=== PATIENT | female | born 1945 | race Caucasian/White ===

== ENCOUNTER 2024-08-06 08:36 | Outpatient (CLI) | payer MEDICARE, OTHER, SELFPAY ==
--- OUTSIDE RECORDS SUMMARY | 2024-08-06 08:48 | XMS_ITS | Continuity of Care Document ---
Author Organization [facility] Address [address] [place] [address] Phone Care Team Providers Care Oral And Maxillofacial Surgery Name Role Phone Andre Weiss MD Unavailable Unavailable Procedures Procedure Date INPATIENT CONSULTATION SUBSEQUENT HOSPITAL CARE Advance Directives Directive Yes / No Effective Date File Name No Information Encounters Encounter Description Practice Location Reason(s) For Visit Diagnoses Date Provider Providers Copied on Encounter INPATIENT CONSULTATION [facility], [address], [place], [address], [place] tel:[phone] [facility] No Information Isela Powell. [address], [facility], [place], [place], [id number], [place]. tel:[phone] Referring Provider: Shirin Lane MD, [address] [place], [address]. tel:[phone] Family History Family Member Type Diagnosis Age At Onset No Information Payers Payer name Insurance type Covered green party ID Authoriza tion(s) [facility] [id number] Social History Type Description Quantity Date Captured Comments Sex Female Smoking Status No Information Chief Complaint And Reason For Visit No Information Reason For Referral Reason For Referral No Information History Of Present Illness Encounter Date Complaint History Of Prese nt Illness No Information Functional Status Date Functional Assessmen t No Information Instructions Date Instruction Additional Infor mation No Information Assessments Type Assessment Date No Information Patient Care Teams Name Effective Dates (start - stop) Status Members No Information
--- OUTSIDE RECORDS SUMMARY | 2024-08-06 08:48 | XMS_ITS | Continuity of Care Document ---
Author Organization [facility] Address [address] [place] [address] Phone Care Team Providers Care Supercalender Operator Helper Name Role Phone BASILIO HERNANDEZ MD Unavailable Unavailable Allergies, Adverse Reactions, Alerts Substance Reaction Status Criticality tramadol Active No Information gabapentin rash(severe)rash(severe) Active No Information morphine Vomiting(severe) Active No Informat ion oxycodone itching(severe)itching(severe) Active No Information propoxyphene hives(severe)hives(severe) Active N o Information nitrofurantoin rash then massive hives(severe) Active No Information Sulfa (Sulfonamide Antibiotics) extreme reaction when applied topically to eyelid(severe) Active No Information codeine rash/ throat swelling(severe) Active No Information 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) Active No Information 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) Active No Information Medications Medication Instructions Dosage Effective Dates (start - stop) Status Comments Hiprex 1 gram tablet - Activ e levocetirizine 5 mg tablet - Active trimethoprim 100 mg tablet - Active tetracycline 500 mg capsule - Active omeprazole magnesium 20 mg capsule,delayed release - Active ipratropium bromide 0.03 % nasal spray - Active simvastatin 20 mg tablet take 1 tablet by oral route every day in the evening 20 MG - Active biotin 5,000 mcg sublingual tablet take 1 tablet by oral route once daily - Active albuterol sulfate ER 8 mg tablet,extended release,12 hr take 1 tablet by oral route every 12 hours 8 MG - Active amlodipine 2.5 mg tablet take 1 tablet by oral route every day 2.5 MG - Active Celebrex 200 mg capsule take 1 capsule by oral route 2 times every day 200 MG - Active fluticasone propionate 50 mcg/actuation nasal spray,suspension spray 1 - 2 spray by intranasal route every day in each nostril as needed 50-100 MCG - Active lisinopril 20 mg tablet take 1 tablet by oral route every day 20 MG - Active omeprazole 20 mg tablet,delayed release take 1 tablet by oral route once daily - Active prednisone 20 mg tablet take 1 tablet by oral route every day 20 MG - Active Premarin 0.625 mg/gram vaginal cream insert 0.5 applicatorful by vaginal route every 3 days cyclically, 3 weeks on and 1 week off 1 G - Active Prolia 60 mg/mL subcutaneous syringe inject 1 milliliter by subcutaneous route every 6 months in the upper arm, upper thigh or abdomen 60 MG - Active Qvar RediHaler 80 mcg/actuation HFA breath activated aerosol inhale 2 puff by inhalation route 2 times every day 160 MCG - Active CoQ-10 100 mg capsule take 1 tablet by oral route 2 times every day 1 tablet - Active Procedures Procedure Date CPTR OPHTH DX IMG POST [facility] EYE EXAM & TREATMENT CPTR OPHTH DX IMG POST [facility] EYE EXAM & TREATMENT EYE EXAM & TREATMENT CPTR OPHTH DX IMG POST [facility] EYE EXAM, NEW PATIENT Advance Directives Directive Yes / No Effective Date File Name No Information Encounters Encounter Description Practice Location Reason(s) For Visit Diagnoses Date Provider Providers Copied on Encounter [facility], [address], [place], [place], [id number] , [place] tel:[phone] Basilio Hernandez MD other non-diabetic proliferative retinopathy (chief complaint) Amaurosis fugaxOther non-diabetic proliferative retinopathy of right eyeVitreous degeneration, right eye 2 [facility]. [address], [id number]. tel:[phone] Referring Provider: BASILIO HERNANDEZ [address], [place], [address] . tel:[phone] Basilio Hernandez MD , [address], [place], [place], [address] , [place] tel: [phone] [facility] MD No Information [facility] [address], [place], [place], [address]. tel:[phone] Basilio Hernandez MD , [address], [place], [place], [address] , [place] tel: [phone] Basilio Hernandez MD routine exam (chief complaint) Other non-diabetic proliferative retinopathy, bilateralUnspe cified iridocyclitisV itreous degeneration, right eyeAmaurosis fugax 2 [facility]. [address] [place] [address], [id number]. tel:[phone] Referring Provider: BASILIO HERNANDEZ [address], [address] . tel:[phone] Basilio Hernandez MD , [address], [place], [address] , [place] tel: [phone] Basilio Hernandez MD Iridocyclitis (chief complaint) Other non-diabetic proliferative retinopathy of right eyeUnspecified iridocyclitisV itreous degeneration, right eye 1 [facility] [address], [place], [address]. tel:[phone] Referring Provider: BASILIO HERNANDEZ [address], [place], [address] . tel:[phone] Bas[facility] MD , [address], [place], [place], [address] , [place] tel: [phone] Declan Germain MD No Information Oct-0 7-201 9 No Information [facility] MD , [address], [place], [place], [address] , tel:[phone] Basilio Hernandez MD Retinal Evaluation (chief complaint) Other non-diabetic proliferative retinopathy, bilateralUnspe cified iridocyclitis Oct-0 2-201 9 [facility]. [address], [place], [place], [address]. tel:[phone] Family History Family Member Type Diagnosis Age At Onset Mother Problem (finding) skin cancer Problem (finding) Family history of Parki nson's disease Problem (finding) Family history of hyper tension Mother Problem (finding) osteoporosis Mother Problem (finding) asthma Problem (finding) Family history of alzhe roc's disease Mother Problem (finding) carcinoma Problem (finding) Family history of strok e Problem (finding) Family history of heart attack Payers Payer name Insurance type Covered constitution party ID Authorargeliaa timandy(s) MEDICARE [id number] [facility] CI [id number] Social History Type Description Quantity Date Captured Comments Alcohol Use Details No Caffeine Use Details soda 8 oz per day Tobacco Use Status Ex-cigarette smoker 022 Smoking Status Former smoker Smoking Tobacco Use Details Cigarette: Age Stopped: 20 Cigarette: No Details Available Sex Female Chief Complaint And Reason For Visit From encounter dated '05/07/2022 15:00'. other non-diabetic proliferative retinopathy (chief complaint). Description: The 76 year old femalepresents for evaluation of other non-diabetic proliferative retinopathy in the right eye and left eye. Patient states no visual acuity changes in either eye since her last visit 2 months ago. Patienthad her amourosis fugax work-up and patient states results were normal. Reason For Referral Reason For Referral No Information Plan Of Treatment Date Type Action Status Goal Tobacco cessation counseling completed Goal Tobacco cessation counseling completed History Of Present Illness Encounter Date Complaint History Of Prese nt Illness Nov-08-2022 other non-diabetic p roliferative retinopathy The 76 year old female presents for evaluation of other non-diabetic proliferative retinopathy in the right eye and left eye. Patient states no visual acuity changes in either eye since her last visit 2 months ago. Patient had her amourosis fugax work-up and patient states results were normal. routine exam The 76 year old female presents for a routine exam in both eyes. Patient reports she had a episode where she loss her vision to the right eye for x15 min. and came back blurrier. 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 Patient reports she has not noticed any changes in vision in either eye since her last visit. Retinal Evaluation The 73 year o ld female presents for Retinal Evaluation in both eyes. Patient was treated by Dr. Germain before at retinal centers. 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 Germain. Patient has had laser treatment in the right in 2010 and second time was 2012. Patient complains of having some visual acuity problems in the right eye for several years ago. Patient reports visual acuity not too good in either eye. Patient also reports no pain in either eye. Functional Status Date Functional Assessmen t Pain Score 0/10 Instructions Date Instruction Additional Infor mation Return in 1 year tang Hernandez MD for a follow up exam and OCT (Cube). Related to Other non-diabetic proliferative retinopathy of right eye Impression/Plan Related to Amaur osis fugax Impression/Plan Related to Other non-diabetic proliferative retinopathy of right eye Impression/Plan Related to Vitre ous degeneration, right eye Return in 2 months dodie Hernandez MD for a follow up exam and OCT (Cube). Related to Amaurosis fugax Impression/Plan Related to Other non-diabetic proliferative retinopathy, bilateral Impression/Plan Related to Unspe cified iridocyclitis Impression/Plan Related to Vitre ous degeneration, right eye Impression/Plan Related to Amaur osis fugax Return in 1 year tang Hernandez MD for Follow up exam. Related to Vitreous degeneration, right eye Impression/Plan Related to Unspe cified iridocyclitis Impression/Plan Related to Vitre ous degeneration, right eye Impression/Plan Related to Other non-diabetic proliferative retinopathy of right eye Return in 1 year tang Bueno for Follow up exam. Related to Other non-diabetic proliferative retinopathy, bilateral Impression/Plan Related to Other non-diabetic proliferative retinopathy, bilateral Impression/Plan Related to Unspe cified iridocyclitis Assessments Type Assessment Date assessment Amaurosis fugax impression Amaurosis fugax: G45.3 Right Apr assessment Other non-diabetic proliferative retinopathy of right eye impression Other non-diabetic p roliferative retinopathy of right eye: H35.21 Right assessment Vitreous degeneration, right eye impression Vitreous degeneration, right eye : H43.811 Right Patient Care Teams Name Effective Dates (start - stop) Status Members No Information
[2024-08-06 09:10] LABS: Hematocrit 38.8 % (37.0-47.0); Mean Corpuscular HGB Conc 33.5 g/dl (32-36); Mean Corpuscular Hemoglobin 32.1 pg (26-34); Mean Corpuscular Volume 95.8 fl (80-100); Mean Platelet Volume 9.5 fl (7.4-10.4); Platelet Count Result 375 k/mm3 (150-375); Red Blood Count 4.05 M/mm3 (4.2-5.4); Red Cell Distribution Width 12.2 % (11.5-14.5); White Blood Count 6.9 K/mm3 (4.5-10.0)
[2024-08-06 09:23] LABS: Alanine Aminotransferase 18 U/L (6-35); Albumin Level 4.2 g/dL (3.5-5.1); Alkaline Phosphatase 55 U/L (38-126); Anion Gap 9 mmol/L (4-12); Aspartate Amino Transferase 26 U/L (14-36); Bilirubin,Total 0.9 mg/dL (0.2-1.3); Blood Urea Nitrogen 12 mg/dL (7-17); Calcium 9.3 mg/dL (8.4-10.2); Carbon Dioxide 26 mmol/L (22-30); Chloride 103 mmol/L (98-107); Cholesterol 168 mg/dL (0-200); Estimated Glomerular Filt Rate > 60; Glucose 89 mg/dL (65-110); HDL Direct 68 mg/dL; Potassium 4.2 mmol/L (3.4-5.0); Sodium 138 mmol/L (137-145); Triglycerides 94 mg/dL (<150)
[2024-08-06 09:35] LABS: LDL Cholesterol Direct 78 mg/dL
[2024-08-06 10:17] LABS: Vitamin D 25 Hydroxy 34.5 ng/mL
== END 2024-08-06 08:37 | disposition home or self-care (01) ==
PROVIDERS: PCP Nurse Practitioner Family; Visit Provider Nurse Practitioner Family
DX: E78.5 Hyperlipidemia, unspecified (principal); E55.9 Vitamin D deficiency, unspecified; M81.0 Age-related osteoporosis without current pathological fracture; Z79.899 Other long term (current) drug therapy; Z76.89 Persons encountering health services in other specified circumstances; Z13.228 Encounter for screening for other metabolic disorders; Z13.0 Encounter for screening for diseases of the blood and blood-forming organs and certain disorders involving the immune mechanism
CPT/HCPCS: 36415; 80053; 80061; 82306; 85027

== ENCOUNTER 2025-01-15 13:34 | Emergency (ER) | payer MEDICARE, OTHER, SELFPAY ==
--- OUTSIDE RECORDS SUMMARY | 2025-01-15 13:36 | XMS_ITS | Continuity of Care Document ---
Author Organization [facility] Address [address] [place] [address] Phone Care Team Providers Care Tile Professional Name Role Phone Andre Weiss MD Unavailable Unavailable Procedures Procedure Date INPATIENT CONSULTATION SUBSEQUENT HOSPITAL CARE Advance Directives Directive Yes / No Effective Date File Name No Information Encounters Encounter Description Practice Location Reason(s) For Visit Diagnoses Date Provider Providers Copied on Encounter INPATIENT CONSULTATION [facility], [address], [place], [address], [place] tel:[phone] [facility] No Information Isela Powell. [address], [facility], [place], [place], [address], [place]. tel:[phone] Referring Provider: Shirin Lane MD, [address] [place], [address]. tel:[phone] Family History Family Member Type Diagnosis Age At Onset No Information Payers Payer name Insurance type Covered alliance party ID Authoriza tion(s) [facility] [id number] Social History Type Description Quantity Date Captured [...]
--- OUTSIDE RECORDS SUMMARY | 2025-01-15 13:36 | XMS_ITS | Continuity of Care Document ---
Author Organization [facility] Address [address] [place] [address] Phone Care Team Providers Care Food Order Expediter Name Role Phone BASILIO HERNANDEZ MD Unavailable [...] Procedure Date CPTR OPHTH DX IMG POST [facility] EYE EXAM & TREATMENT CPTR OPHTH DX IMG POST [facility] EYE EXAM & TREATMENT EYE EXAM & TREATMENT CPTR OPHTH DX IMG POST [facility] EYE EXAM, NEW PATIENT Advance Directives Directive Yes / No Effective Date File Name No Information Encounters Encounter Description Practice Location Reason(s) For Visit Diagnoses Date Provider Providers Copied on Encounter [facility], [address], [place], [place], [id number] , [place] tel:[phone] Basilio Hernandez MD other non-diabetic proliferative retinopathy (chief complaint) Amaurosis fugaxOther non-diabetic proliferative retinopathy of right eyeVitreous degeneration, right eye 2 [facility]. [address], [id number]. tel:[phone] Referring Provider: BASILIO HERNANDEZ [address], [place], [address] . tel:[phone] Basilio Hernandez MD , [address], [place], [place], [address] , [place] tel: [phone] Basilio Hernandez MD No Information 2 [facility]. [address], [place], [place], [address]. tel:[phone] Basilio Hernandez MD , [address], [place], [place], [address] , [place] tel: [phone] Basilio Hernandez MD routine exam (chief complaint) Other non-diabetic proliferative retinopathy, bilateralUnspe cified iridocyclitisV itreous degeneration, right eyeAmaurosis fugax 2 [facility]. [address] [place] [address], [id number]. tel:[phone] Referring Provider: BASILIO HERNANDEZ [address], [address] . tel:[phone] Basilio Hernandez MD , [address], [place], [address] , [place] tel: [phone] Basilio Hernandez MD Iridocyclitis (chief complaint) Other non-diabetic proliferative retinopathy of right eyeUnspecified iridocyclitisV itreous degeneration, right eye 1 [facility]. [address], [place], [address]. tel:[phone] Referring Provider: BASILIO HERNANDEZ [address], [place], [address] . tel:[phone] Basilio [facility] MD , [address], [place], [place], [address] , [place] tel: [phone] Declan Germain MD No Information Oct-0 7-201 9 No Information [facility] MD , [address], [place], [place], [address] , tel:[phone] Basilio Hernandez MD Retinal Evaluation (chief complaint) Other non-diabetic proliferative retinopathy, bilateralUnspe cified iridocyclitis Oct-0 2-201 9 [facility]. [address], [place], [place], [address]. tel:[phone] Family History Family Member Type Diagnosis Age [...] Covered constitution party ID Authorargeliaa timandy(s) MEDICARE [id number] [facility] CI [id number] Social History Type Description Quantity Date Captured [...] both eyes. Patient was treated by Dr. Gemrain before at retinal centers. Patient was diagnosed [...]
[2025-01-15 13:39] VITALS: BP 104/79; PULSE 113; RESP 22; TEMP 36.8; O2SAT 99
--- OUTSIDE RECORDS SUMMARY | 2025-01-15 16:49 | XMS_ITS | Continuity of Care Document ---
Author Organization [facility] Address [address] [place] [address] Phone Care Team Providers Care Gut Dropper Name Role Phone Andre Weiss MD Unavailable Unavailable Procedures Procedure Date INPATIENT CONSULTATION SUBSEQUENT HOSPITAL CARE Advance Directives Directive Yes / No Effective Date File Name No Information Encounters Encounter Description Practice Location Reason(s) For Visit Diagnoses Date Provider Providers Copied on Encounter INPATIENT CONSULTATION [facility], [address], [place], [address], [place] tel:[phone] [facility] No Information Isela Powell. [address], [facility], [place], [place], [address], [place]. tel:[phone] Referring Provider: Shirin Lane MD, [address] [place], [address]. tel:[phone] Family History Family Member Type Diagnosis Age At Onset No Information Payers Payer name Insurance type Covered democrat ID Authoriza tion(s) [facility] [id number] Social History Type Description Quantity Date Captured [...]
--- OUTSIDE RECORDS SUMMARY | 2025-01-15 16:49 | XMS_ITS | Continuity of Care Document ---
Author Organization [facility] Address [address] [place] [address] Phone Care Team Providers Care Mold Checker Name Role Phone BASILIO HERNANDEZ MD Unavailable [...] Procedure Date CPTR OPHTH DX IMG POST [facility] EYE EXAM & TREATMENT CPTR OPHTH DX IMG POST [facility] EYE EXAM & TREATMENT EYE EXAM & TREATMENT CPTR OPHTH DX IMG POST [facility] EYE EXAM, NEW PATIENT Advance Directives Directive Yes / No Effective Date File Name No Information Encounters Encounter Description Practice Location Reason(s) For Visit Diagnoses Date Provider Providers Copied on Encounter [facility], [address], [place], [place], [address] , [place] tel:[phone] Basilio Hernandez MD other non-diabetic proliferative retinopathy (chief complaint) Amaurosis fugaxOther non-diabetic proliferative retinopathy of right eyeVitreous degeneration, right eye 2 [facility]. [address], [id number]. tel:[phone] Referring Provider: BASILIO HERNANDEZ [address], [place], [address] . tel:[phone] Basilio Hernandez MD , [address], [place], [place], [address] , [place] tel: [phone] Basilio Hernandez MD No Information 2 [facility] [address], [place], [place], [address]. tel:[phone] Basilio Hernandez MD , [address], [place], [place], [address] , [place] tel: [phone] Basilio Hernandez MD routine exam (chief complaint) Other non-diabetic proliferative retinopathy, bilateralUnspe cified iridocyclitisV itreous degeneration, right eyeAmaurosis fugax 2 [facility]. [address] [place] [address], [id number]. tel:[phone] Referring Provider: BASILIO HERNANDEZ [address], [address] . tel:[phone] Basilio Hernandez MD , [address], [place], [address] , [place] tel: [phone] Basilio Hernandez MD Iridocyclitis (chief complaint) Other non-diabetic proliferative retinopathy of right eyeUnspecified iridocyclitisV itreous degeneration, right eye 1 [facility] [address], [place], [address]. tel:[phone] Referring Provider: BASILIO HERNANDEZ [address], [place], [address] . tel:[phone] Basilio Hernandez MD , [address], [place], [place], [address] , [place] tel: [phone] Declan Germain MD No Information Oct-0 7-201 9 No Information Basilio Hernandez MD , [address], [place], [place], [address] , tel:[phone] Basilio Hernandez MD Retinal Evaluation (chief complaint) Other non-diabetic proliferative retinopathy, bilateralUnspe cified iridocyclitis Oct-0 2-201 9 [facility]. [address], [place], [place], [address]. tel:[phone] Family History Family Member Type Diagnosis Age [...] attack Payers Payer name Insurance type Covered libertarian ID Authorargeliaa timandy(s) MEDICARE [id number] [facility] CI [id number] Social History Type Description Quantity Date Captured [...]
[2025-01-15 16:52] VITALS: BP 143/89; PULSE 98; RESP 20; O2SAT 99
[2025-01-15 17:09] LABS: Add Urine Microscopic? YES; Appearance Urine Cloudy (Clear); Glucose Urine UA Negative (Negative); Leukocyte Esterase Ur 3+ LEU/UL (Negative); Need Manual Microscopic Reviewed; Nitrate Urine Positive (Negative); Specific Grav Ur 1.012 (1.001-1.035)
--- NOTE | 2025-01-15 17:18 | ED.GENADULT ---
HPI - General Adult General Chief complaint: Urogenital-Female Stated complaint: uti Time Seen by Provider: 01/15/25 16:29 History of Present Illness HPI narrative: This is an 79-year-old female presenting with UTI symptoms. Started this morning she developed dysuria urgency and frequency. She does not have any fevers chills nausea vomiting diarrhea. She does not have any flank pain. Patient is very concerned about her health and has an extensive medicine and vitamin list. She also applies pre maroon estrogen cream to her vulva 4 times a week. She has a history of amoxicillin induced hepatitis she is very careful about which antibiotics she will take. Related Data Home Medications ?Medication ?Instructions ?Recorded ?Confirmed ?Last Taken ?Type albuterol sulfate 90 mcg/actuation 2 inh inhalation Q4H PRN 08/04/24 08/04/24 Unknown History aerosol inhaler (Ventolin HFA) azelastine 137 mcg (0.1 %) nasal 1 spray intranasal Q12H 08/04/24 08/04/24 Unknown History spray beclomethasone dipropionate 80 1 inh inhalation Q12H 08/04/24 08/04/24 Unknown History mcg/actuation HFA breath activated aerosol (Qvar RediHaler) calcium 600 mg (as carbonate)-vit 2 tablet PO 08/04/24 08/04/24 Unknown History D3 10 mcg (400 unit) chewable tablet (Calcium 600 with Vitamin D3) celecoxib 200 mg capsule (Celebrex) 200 mg PO DAILY 08/04/24 08/04/24 Unknown History conjugated estrogens 0.625 mg/gram 0.625 mg vaginal 4XW 08/04/24 08/04/24 Unknown History vaginal cream (Premarin) fluticasone propionate 50 1 spray intranasal BID 08/04/24 08/04/24 Unknown History mcg/actuation nasal spray,suspension ipratropium bromide 21 mcg (0.03 2 spray intranasal ONCE PRN 08/04/24 08/04/24 Unknown History %) nasal spray multivitamin 1 tablet PO DAILY 08/04/24 08/04/24 Unknown History simvastatin 20 mg tablet 20 mg PO QHS 08/04/24 08/04/24 Unknown History amlodipine 2.5 mg tablet (Norvasc) 2.5 mg PO DAILY 08/05/24 08/05/24 Unknown History Allergies Allergy/AdvReac Type Severity Reaction Status Date / Time amoxicillin (From Augmentin) AdvReac Severe Other Verified 01/15/25 16:56 clavulanic acid (From AdvReac Severe Other Verified 01/15/25 16:56 Augmentin) codeine AdvReac Severe Rash Verified 01/15/25 16:56 gabapentin AdvReac Severe Rash Verified 01/15/25 16:56 nitrofurantoin AdvReac Severe Rash Verified 01/15/25 16:56 morphine AdvReac Unknown Vomiting Verified 01/15/25 16:56 oxycodone percocet AdvReac Severe Itching Uncoded 01/15/25 16:56 propoxyphene darvocet AdvReac Severe Hives Uncoded 01/15/25 16:56 sulfa AdvReac Severe Other Uncoded 01/15/25 16:56 [facility] Past Medical History Medical History Encounter to establish care halfway use of drug Social History Social History Smoking status: Never smoker Exam Narrative: APPEARANCE: No apparent distress. Well-appearing, A&O x4 Head: atraumatic. EYES: EOMI, NOSE: Atraumatic NECK: Trachea midline RESPIRATORY: No increased rate of breathing CTAB CARDIOVASCULAR: RRR, no peripheral edema ABDOMINAL: Non-distended no suprapubic tenderness guarding rebound no CVA tenderness MUSCULOSKELETAl: No obvious deformities NEURO: Alert. Moving 4/4 extremities SKIN:: Warm, dry. Normal color PSYCHIATRIC: Normal affect Course Vital Signs Vital signs: Vital Signs Temperature 98.2 F 01/15/25 13:39 Pulse Rate 113 H 01/15/25 13:39 Respiratory Rate 22 H 01/15/25 13:39 Blood Pressure 104/79 01/15/25 13:39 Pulse Oximetry 99 01/15/25 13:39 Oxygen Delivery Room Air 01/15/25 13:39 Temperature 98.2 F 01/15/25 13:39 Pulse Rate 98 01/15/25 16:52 Respiratory Rate 20 01/15/25 16:52 Blood Pressure 143/89 H 01/15/25 16:52 Pulse Oximetry 99 01/15/25 16:52 Oxygen Delivery Room Air 01/15/25 16:52 Medical Decision Making MDM Narrative Medical decision making narrative: -Course: 79-year-old female presenting with urinary symptoms. Urine indicative of infection. Vital signs are stable and she is well appearing overall. No flank pain or concerns for pyelonephritis. I discussed obtaining laboratory studies and the patient has declined. She would like to be placed on a tetracycline as she can take that antibiotic safely. She will be put on a 10 day course of doxycycline. Her urine will be sent for culture results. I have stressed the importance of her returning if she is getting worse she is high risk. Patient has verbalized her understanding appears responsible. -DDX includes but is not limited to: UTI, pyelonephritis, sepsis, Vital Signs Vital Signs: Vital Signs Temperature 98.2 F 01/15/25 13:39 Pulse Rate 113 H 01/15/25 13:39 Respiratory Rate 22 H 01/15/25 13:39 Blood Pressure 104/79 01/15/25 13:39 Pulse Oximetry 99 01/15/25 13:39 Oxygen Delivery Room Air 01/15/25 13:39 Temperature 98.2 F 01/15/25 13:39 Pulse Rate 98 01/15/25 16:52 Respiratory Rate 20 01/15/25 16:52 Blood Pressure 143/89 H 01/15/25 16:52 Pulse Oximetry 99 01/15/25 16:52 Oxygen Delivery Room Air 01/15/25 16:52 Lab Data Labs: Lab Results 01/15/25 Range/Units 16:33 Urine Color Yellow (Yellow) Urine Appearance Cloudy H (Clear) Urine pH 6.0 (5.0-9.0) Ur Specific [place] 1.012 (1.001-1.035) Urine Protein 3+ H (Negative) mg/dL Urine Glucose (UA) Negative (Negative) mg/dL Urine Ketones Negative (Negative) mg/dL Ur Blood (Man) 3+ H (Negative) Urine Nitrate Positive H (Negative) Urine Bilirubin Negative (Negative) Urine Urobilinogen 1.0 (<2.0) mg/dL Add Ur Microanalysis Reviewed Leukocyte Esterase Rfl 3+ H (Negative) TRACY/UL Urine RBC >100 H (0-2) /hpf Urine WBC >100 H (0-3) /hpf Ur Squamous Epith Cells Occasional (Few) /hpf Urine Bacteria 4+ H /hpf Urine Casts 3-5 Discharge Plan Discharge Clinical Impression: Acute UTI Patient Disposition: Home Condition: Stable Instructions: Antibiotic Form, Urinary Tract Infection in Women (ED) Additional Instructions: You were seen emergency department for a urinary tract infection. Please complete a 10 day course of doxycycline. If you feel that you are getting worse or your symptoms are not improving after the 1st 2 days please return to ED for re-evaluation. Patient Language: Lao Prescriptions: New doxycycline hyclate 100 mg capsule 100 mg PO BID Qty: 20 0RF No Action albuterol sulfate [Ventolin HFA] 90 mcg/actuation HFA aerosol inhaler 2 inh inhalation Q4H PRN azelastine 137 mcg (0.1 %) spray,non-aerosol 1 spray intranasal Q12H Rx Instructions: administer into each nostril celecoxib [Celebrex] 200 mg capsule 200 mg PO DAILY fluticasone propionate 50 mcg/actuation spray,suspension 1 spray intranasal BID Rx Instructions: administer into each nostril ipratropium bromide 21 mcg (0.03 %) spray,non-aerosol 2 spray intranasal ONCE PRN Rx Instructions: administer into each nostril Premarin 0.625 mg/gram cream 0.625 mg vaginal 4XW Qvar RediHaler 80 mcg/actuation HFA aerosol breath activated 1 inh inhalation Q12H simvastatin 20 mg tablet 20 mg PO QHS multivitamin Tablet 1 tablet PO DAILY Calcium 600 with Vitamin D3 600 mg-10 mcg (400 unit) tablet,chewable 2 tablet PO amlodipine [Norvasc] 2.5 mg tablet 2.5 mg PO DAILY omeprazole 20 mg capsule,delayed release(DR/EC) 20 mg PO QHS Qty: 90 1RF lisinopril 20 mg tablet 20 mg PO DAILY Qty: 90 1RF Prolia 60 mg/mL syringe 60 mg subcut [id number] Qty: 1 0RF Follow-up/Referrals: Eufemia Saez APRN [Primary Care Provider] -
[2025-01-15] MEDS: DOXYCYCLINE HYCLATE 100 MG TABLET PO (17:28)
[2025-01-15 17:37] VITALS: BP 132/79; PULSE 90; RESP 18; O2SAT 98
== END 2025-01-15 17:38 | disposition home or self-care (01) ==
PROVIDERS: Emergency Medicine; Emergency Provider Emergency Medicine; PCP Nurse Practitioner Family
DX: N39.0 Urinary tract infection, site not specified (principal)
CPT/HCPCS: 81001; 87086; 99283; A9270

== ENCOUNTER 2025-02-10 15:02 | Outpatient (CLI) | payer MEDICARE, OTHER, SELFPAY ==
--- NOTE | ~2025-02-10 | DEXA_ITS ---
Bone Density Report Name: DUNIA BORGES Age: 79 Sex: Female Ethnicity: White Date of : 1945 Indication: postmenopausal; screening for osteoporosis; parental hip fracture; height loss; asthma or emphysema; hysterectomy; Referring Provider: ASHER RICHARDSON Study: Bone densitometry was performed. Exam Date: February 10, 2025 Accession number: [id number] Bone Density: Region BMD T-score Z-score Classification AP Spine(L1, L2) 0.918 -0.6 2.0 Normal Femoral Neck (Left) 0.655 -1.7 0.6 Osteopenia Total Hip (Left) 0.787 -1.3 0.8 Osteopenia Femoral Neck (Right) 0.607 -2.2 0.1 Osteopenia Total Hip (Right) 0.812 -1.1 1.0 Osteopenia Total Hip Mean 0.799 -1.2 0.9 Osteopenia World Health Organization criteria for BMD impression classify patients as: Normal (T-score at or above -1.0), Osteopenia (T-score between -1.0 and -2.5), or Osteoporosis (T-score at or below -2.5). 10-year Fracture Risk(1): Major Osteoporotic Fracture 30% Hip Fracture 20% Reported Risk Factors: [place] (), Neck BMD=0.607, BMI=29.1, parental fracture (1) FRAX(R) Version 3.08. Fracture probability calculated for an untreated patient. Fracture probability may be lower if the patient has received treatment. Clinical Information Provided by Patient: Parent has had a hip fracture Has used the following medications: Calcium Has the following medical conditions: Asthma or Emphysema, Hysterectomy Patient maximum height was 68 Menopause Age: 37 Does not regularly consume dairy products Drinks caffeinated beverages Onset of menses at age 12 Number of children 0 Impression: The patient has low bone mass, based on the Right Femoral Neck T-score. The patient has an estimated ten-year risk of hip fracture of 20% and an estimated ten-year risk of major fracture of 30%, based on the WHO FRAX algorithm. The patient has risk factors, including: parental hip fracture. Discussion: BONE DENSITY IS LOW AT ONE OR MORE SKELETAL SITES. THE PATIENT'S BMD AND CLINICAL RISK FACTORS CONTRIBUTE TO THIS PATIENT'S HIGH RISK OF FRACTURE. This patient's lowest T-score is low at one or more skeletal sites. It meets the World Health Organization's (WHO) criteria for ?low bone mass? (T-score between -1.0 and -2.5). The patient's 10-year risk of hip fracture and 10 year risk of a major osteoporotic fracture as calculated by FRAX exceeds the threshold where pharmacological therapy is recommended by the National Osteoporosis Foundation (NOF). However, all treatment decisions require clinical judgment and consideration of individual patient factors, including patient preferences, comorbidities, previous drug use, risk factors not captured in the FRAX model (e.g., frailty, falls, vitamin D deficiency, increased bone turnover, interval significant decline in bone density) and possible under or overestimation of fracture risk by FRAX. The patient should follow a healthful lifestyle (good nutrition with adequate calcium and vitamin D, and appropriate weight-bearing exercise). Follow-Up: Consider a repeat BMD and Vertebral Fracture Assessment (VFA) exam in 2 years or sooner if medically necessary, to reassess this patient's status. Reported by: VIRAJ on 02/10/2025 4:00:00 PM. Reviewed, dictated and finalized at location A.
== END 2025-02-10 15:03 | disposition home or self-care (01) ==
PROVIDERS: PCP Nurse Practitioner Family; Visit Provider Nurse Practitioner Family
DX: M81.0 Age-related osteoporosis without current pathological fracture (principal); M85.852 Other specified disorders of bone density and structure, left thigh; M85.851 Other specified disorders of bone density and structure, right thigh
CPT/HCPCS: 77080

== ENCOUNTER 2025-06-13 14:51 | Outpatient (CLI) | payer MEDICARE, OTHER, SELFPAY ==
[2025-06-13 16:03] LABS: Hematocrit 40.2 % (37.0-47.0); Hemoglobin 12.8 g/dL (12.0-15.0); Mean Corpuscular HGB Conc 31.8 g/dl (32-36); Mean Corpuscular Hemoglobin 29.5 pg (26-34); Mean Corpuscular Volume 92.6 fl (80-100); Platelet Count Result 425 k/mm3 (150-375); Red Blood Count 4.34 M/mm3 (4.2-5.4); White Blood Count 7.6 K/mm3 (4.5-10.0)
[2025-06-13 16:15] LABS: Alanine Aminotransferase 17 U/L (6-35); Albumin Level 4.5 g/dL (3.5-5.1); Alkaline Phosphatase 92 U/L (38-126); Anion Gap 8 mmol/L (4-12); Aspartate Amino Transferase 29 U/L (14-36); Bilirubin,Total 0.5 mg/dL (0.2-1.3); Blood Urea Nitrogen 22 mg/dL (7-17); Calcium 9.6 mg/dL (8.4-10.2); Carbon Dioxide 25 mmol/L (22-30); Chloride 102 mmol/L (98-107); Estimated Glomerular Filt Rate 53; Glucose 100 mg/dL (65-110); Magnesium 2.3 mg/dL (1.6-2.3); Potassium 4.3 mmol/L (3.4-5.0); Sodium 135 mmol/L (137-145); Total Protein 8.1 g/dL (6.3-8.2)
[2025-06-13 17:26] LABS: Vitamin B12 891.0 pg/mL (239-931)
== END 2025-06-13 14:52 | disposition home or self-care (01) ==
PROVIDERS: PCP Nurse Practitioner Family; Visit Provider Nurse Practitioner Family
DX: T78.40XA Allergy, unspecified, initial encounter (principal); I10 Essential (primary) hypertension; E78.00 Pure hypercholesterolemia, unspecified; M81.0 Age-related osteoporosis without current pathological fracture; H16.229 Keratoconjunctivitis sicca, not specified as Sjogren's, unspecified eye; H16 Keratitis; H35.069 Retinal vasculitis, unspecified eye; H35.049 Retinal micro-aneurysms, unspecified, unspecified eye; H26.9 Unspecified cataract; K21.9 Gastro-esophageal reflux disease without esophagitis; N80.9 Endometriosis, unspecified; Z85.828 Personal history of other malignant neoplasm of skin; M15.9 Polyosteoarthritis, unspecified; S13.4XXA Sprain of ligaments of cervical spine, initial encounter; J45.40 Moderate persistent asthma, uncomplicated; Z79.899 Other long term (current) drug therapy; R79.0 Abnormal level of blood mineral; E55.9 Vitamin D deficiency, unspecified; R79.89 Other specified abnormal findings of blood chemistry; X58.XXXA Exposure to other specified factors, initial encounter
CPT/HCPCS: 36415; 80053; 82306; 82607; 82746; 83735; 85027